=== PATIENT | male | born 1995 | race African-American/Black ===

== ENCOUNTER 2017-05-08 05:40 | Emergency (ER) | payer OTHER ==
[2017-05-08] MEDS ORDERED: Ibuprofen TAB* 600 MG PO ONE (05:58)
[2017-05-08 06:15] LABS: ABS Basophils 0 10^3/ul (0-0.2); ABS Eosinophils 0 10^3/ul (0-0.6); ABS Lymphocytes 1.3 10^3/ul (1.0-4.8); ABS Monocytes 0.7 10^3/ul (0-0.8); ABS Neutrophils 6.4 10^3/ul (1.5-7.7); ABS Nucleated RBC 0 10^3/ul; Eosinophil % 0.3 % (0-6); Hematocrit 39 % (42-52); Hemoglobin 13.3 g/dl (14.0-18.0); Lymphocyte % 15.7 % (25-47); Mean Corpuscular HGB Conc 35 g/dl (31-36); Mean Corpuscular Hemoglobin 30 pg (27-31); Mean Corpuscular Volume 86 fL (80-94); Mean Platelet Volume 8 um3 (7.4-10.4); Nucleated Red Blood Cells % 0.1; Platelet Count 184 10^3/ul (150-450); Red Blood Count 4.49 10^6/ul (4.0-5.4); Red Cell Distribution Width 14 % (10.5-15); White Blood Count 8.5 10^3/ul (3.5-10.8)
[2017-05-08 06:31] LABS: EGFR Non-African American 100.1 (>60)
--- NOTE | 2017-05-08 06:38 | ED ---
Liborio Gonzalez Jennifer, scribed for Chano De Santiago on 05/08/17 at 0559 . Lower Extremity - HPI Summary HPI Summary: The patient is a 21 year old male who presents to the ED with bilateral leg pain and fatigue from walking too much today. 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 He reports he has been walking since 08:00 yesterday until 06:00 today. The pain is underneath his knees and up to his thighs, which he has never experienced before. The patient denies chest pain and shortness of breath. - History of Current Complaint Chief Complaint: EDExtremityLower Stated Complaint: LEG PAIN Time Seen by Provider: 05/08/17 05:47 Hx Obtained From: Patient Mechanism Of Injury: Other - Walking too much Onset/Duration: Hours Severity Initially: Moderate Severity Currently: Moderate Pain Intensity: 6 Pain Scale Used: 0-10 Numeric Timing: Constant Location: Is Discrete @ - Upper thighs and under knees Associated Signs And Symptoms: Positive: Other - Leg pain, fatigue. NEGATIVE: chest pain, shortness of breath Aggravating Factor(s): Ambulation Alleviating Factor(s): Nothing Able to Bear Weight: Yes - Allergies/Home Medications Allergies/Adverse Reactions: Allergies Allergy/AdvReac Type Severity Reaction Status Date / Time No Known Allergies Allergy Verified 05/08/17 05:44 PMH/Surg Hx/FS Hx/Imm Hx Endocrine/Hematology History: Denies: Hx Diabetes Cardiovascular History: Denies: Hx Hypertension Infectious Disease History: No Infectious Disease History: Denies: Traveled Outside the [place] in Last 30 Days - Family History Known Family History: Negative: Diabetes - Social History Alcohol Use: None Substance Use Type: Reports: None Smoking Status (MU): Never Smoked Tobacco Review of Systems Positive: Fatigue Positive: Myalgia - Bilateral leg pain All Other Systems Reviewed And Are Negative: Yes Physical Exam - Summary Physical Exam Summary: Appearance: Well appearing, no pain distress Skin: warm, dry, reflects adequate perfusion Head/face: normal Eyes: EOMI, PO ENT: normal Neck: supple, non-tender Respiratory: CTA, breath sounds present Cardiovascular: RRR, pulses symmetrical Abdomen: non-tender, soft Bowel: present Musculoskeletal: normal, strength/ROM intact Neuro: normal, sensory motor intact, A&Ox3 Triage Information Reviewed: Yes Vital Signs On Initial Exam: Initial Vitals Temp Pulse Resp BP Pulse Ox 99.0 F 94 15 151/74 99 05/08/17 05:40 05/08/17 05:40 05/08/17 05:40 05/08/17 05:40 05/08/17 05:40 Vital Signs Reviewed: Yes Diagnostics - Vital Signs Vital Signs Temp Pulse Resp BP Pulse Ox 05/08/17 05:40 99.0 F 94 15 151/74 99 - Laboratory Result Diagrams: 05/08/17 06:05 05/08/17 06:05 Lab Statement: Any lab studies that have been ordered have been reviewed, and results considered in the medical decision making process. Lower Extremity Course/Dx - Course Assessment/Plan: The patient is a 21 year old male who presents to the ED with bilateral leg pain and fatigue from walking too much today. 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 In the ED course the patient was given Motrin. Bloodwork was obtained. The patient will be signed out to Dr. Garcia pending fluid intake. - Diagnoses Provider Diagnoses: Rhabdomyolysis Discharge - Discharge Plan Condition: Stable Disposition: OTHER Discharge Disposition Comment: Sign out to Dr. Garcia pending fluid intake. The documentation as recorded by the Liborio khoury Jennifer accurately reflects the service I personally performed and the decisions made by , Chano De Santiago.
[2017-05-08] MEDS: NS 0.9% 1000 ML* 2,000 ML IV ONE ×2 (06:41→07:31)
[2017-05-08] MEDS ORDERED: NS 0.9% 1000 ML* 1,000 ML IV ONE (12:50)
[2017-05-08 16:08] VITALS: BP 118/64
--- NOTE | 2017-05-09 20:30 | ED ---
Amada Gonzalez Thomas, scribed for Gianni Garcia MD on 05/08/17 at 1537 . Progress - Progress Note Progress Note: Mr. Rockwell has a plan for walking from [place] to [place] in order to raise awareness for mental health issues. He has set up stops along the way but last night one of them fell through and he ended up walking for many hours more than he usually has. He came in to the ED with painful calves and thighs and was noted to have a CPK of nearly 1000. He was hydrated, allowed to rest and felt improved. He wanted to keep walking and had about a 90 minute walk to get to the B&B he was scheduled to stay at [facility]. Course/Dx - Diagnoses Provider Diagnoses: Exhaustion The documentation as recorded by the Amada khoury Thomas accurately reflects the service I personally performed and the decisions made by me, Gianni Garcia MD.
== END 2017-05-08 16:07 ==
LOC: ED 05:40
DX: M62.82 Rhabdomyolysis (principal)
CPT/HCPCS: 36415; 80053; 82550; 85025; 96360; 96361; 99282; A9270-GY